=== PATIENT | male | born 1990 | race Caucasian/White ===

== ENCOUNTER → 2016-04-09 | Outpatient (CLI) | payer OTHER, BC ==
[~2016-04-09] MED LIST: CIPR-226 PO; HYDR-3875 PO; PHEN-640 PO; TAMS0.4C98 PO
--- OUTSIDE RECORDS SUMMARY | 2016-04-09 13:12 | XMS REPORT | Continuity of Care Document ---
Author Author [facility] Organization [facility] Address Unknown Phone Unavailable Care Team Providers Care Larry Car Operator Name Role Phone ANIL DARNELL MD PCP Insurance Providers Payer Name Policy Number Subscriber Name Relationship [employer] [id number] Floyd Ballesteros 20 Self / Same As Patient [facility] [id number] Floyd Ballesteros 20 Self / Same As Patient Advance Directives Directive Response Recorded Date/Time Advance Directives No 03/29/16 9:13am Resuscitation Status Full Code 03/29/16 9:13am Problems No problem information available. Medications No known medications. Social History Social History Problem Response Recorded Date/Time Alcohol Use Past History 03/29/2016 9:13am Recreational Drug Use No 03/29/2016 9:13am Recent Foreign Travel No 03/29/2016 9:15am Smoking Status Never a Smoker 03/29/2016 9:13am Recent Hopitalizations No 03/29/2016 9:13am Query Response Start Date Stop Date Smoking Status Never a Smoker Hospital Discharge Instructions Patient Instructions Physician Instructions New, Converted, or Re-newed RX: RX given to Patient/Fam Plan Come to office Sunday 04/09 at 1:30pm, KUB prior to it KUB on way home Increase oral fluids for 48 hours and then as needed. Diet and Activity as tolerated. If questions or concerns contact your physician Or seek help at emergency department. Plan of Care Discharge Date 03/29/16 3:45pm Instructions/Education Provided ANESTHESIA INSTRUCTIONS POSTOP Prescriptions See Medication Section Functional Status No functional status results. Allergies, Adverse Reactions, Alerts No known allergies. Immunizations No immunization records. Vital Signs Acute Vital Signs Vital Response Date/Time Temperature (Fahrenheit) 98.0 degrees F (97.6 - 99.5) 03/29/2016 3:45pm Temperature (Calculated Celsius) 36.86187 degrees C (36.4 - 37.5) 03/29/2016 2:55pm Temperature Source Temporal 03/29/2016 3:45pm Pulse Rate (adult) 77 bpm (60 - 90) 03/29/2016 3:45pm Respiratory Rate 18 bpm (12 - 24) 03/29/2016 3:45pm O2 Sat by Pulse Oximetry 99 % (88 - 100) 03/29/2016 3:45pm Blood Pressure 144/90 mm Hg 03/29/2016 3:45pm Blood Pressure Mean 110 mm Hg 03/29/2016 9:16am Pain Numeric Pain Scale 2 03/29/2016 3:45pm Pain Intensity 3 03/29/2016 2:55pm Height (Feet) 5 feet 03/29/2016 9:15am Height (Inches) 11.00 inches 03/29/2016 9:15am Height (Calculated Centimeters) 180.852557 cm 03/29/2016 9:15am Weight (Pounds) 300 pounds 03/29/2016 9:15am Weight (Ounces) 0.0 oz 03/29/2016 9:15am Weight (Calculated Grams) 688801.71 gm 03/29/2016 9:15am Weight (Calculated Kilograms) 136.612997 kilograms 03/29/2016 9:15am Calculated BMI 41.8 03/29/2016 9:15am Results No known relevant diagnostic tests, laboratory data and/or discharge summary. Procedures Procedure Status Date Provider(s) Cystoscopy Completed 03/29/16 JAYLON OSWALD MD Encounters Encounter Location Arrival/Admit Date Discharge/Depart Date Attending Provider Departed Surgical Day Care [facility] 03/29/16 8:38am 3:45pm JAYLON OSWALD MD Registered Clinic [facility] 03/28/16 9:48am JAYLON OSWALD MD
--- NOTE | 2016-04-09 14:52 | Diagnostic Imaging Report ---
EXAMINATION: KUB. INDICATION: Renal stone. FINDINGS: When compared to 03/29/2016, there is distal migration of both ureteric stents, the right stent is in the mid right ureter and the left stent proximal aspect is in the proximal left ureter. The previously seen stone appears to project at the lower L2 level and could be in the renal pelvis. There is, however, adjacent fecal material, and this density measuring 1.2 cm is possibly but not definitively a stone. No definitive urinary tract stone is identified. Cholecystectomy clips are seen. IMPRESSION: There is migration of ureteric stents distally as described. Suggestion of a 1.2 cm left renal pelvis stone. Dictated by: Dictated on workstation # [id number]
== END ==
LOC: RAD 13:08
PROVIDERS: ATTEND Urology
DX: N20.0 Calculus of kidney (principal)
CPT/HCPCS: 74000

== ENCOUNTER → 2016-04-10 | Day surgery (SDC) | payer OTHER, BC ==
[~2016-04-10] VITALS: Ht 180.3 cm; Wt 136.1 kg
[~2016-04-10] MED LIST changes: +FUROSEMIDE 40 MG/4 ML INJ (LASIX) ONE; +KETOROLAC 30 MG/ML VIAL ONE; +LACTATED RINGERS 1,000 ML IV ONE; +LACTATED RINGERS 1,000 ML IV PRN; +LIDOCAINE 1% 10 MG/ML 0.2 ML SYR (FOR IV START) ONE; +LIDOCAINE PF 2% 10 ML (XYLOCAINE) AMP ONE; +MEPERIDINE (DEMEROL) INJ 50 MG/ML IVP PRN; +MIDAZOLAM 2 MG/2 ML (VERSED) VIAL ONE; +NORMAL SALINE (BAXTER MINI) 50 ML IV ONE; +ONDANSETRON 4 MG/2 ML (SDV) Z0FRAN IVP PRN; +ONDANSETRON 4 MG/2 ML (SDV) Z0FRAN ONE; +SEVOFLURANE (ULTANE) 15 ML INHAL SOLN ONE; +cefTRIAXone 1 GM (ROCEPHIN) VIAL ONE; +cefTRIAXone 1 GM/NS 50 ML IVPB IV ONE; +fentaNYL INJECTION 100 MCG/2 ML AMP ONE; +morphine INJ 10 MG/ML 1ML (SYR OR VIAL) IVP PRN; +proPOfol 200 MG/20 ML (DIPRIVAN) VIAL IV ONE
--- NOTE | 2016-04-10 07:22 | Progress Note-Pre Operative ---
Pre-Operative Progress Note H&P Reviewed The H&P was reviewed, patient examined and no changes noted. Date H&P Reviewed: Apr 10, 2016 Time H&P Reviewed: 07:21 Pre-Operative Diagnosis: Lt renal stone JAYLON OSWALD MD Apr 10, 2016 7:22 am
--- OUTSIDE RECORDS SUMMARY | 2016-04-10 08:11 | XMS REPORT | Continuity of Care Document ---
Author Author [facility] Organization [facility] Address Unknown Phone Unavailable Care Team Providers Care Tanning Solution Maker Name Role Phone ANIL DARNELL MD PCP Insurance Providers Payer Name Policy Number Subscriber Name Relationship [employer] [id number] Floyd Ballesteros 20 Self / Same As Patient [facility] [id number] Floyd Ballesteros 20 Self / Same As [...] - 99.5) 03/29/2016 3:45pm Temperature (Calculated Celsius) 36.03684 degrees C (36.4 - 37.5) 03/29/2016 2:55pm [...] 11.00 inches 03/29/2016 9:15am Height (Calculated Centimeters) 180.579294 cm 03/29/2016 9:15am Weight (Pounds) 300 pounds 03/29/2016 9:15am Weight (Ounces) 0.0 oz 03/29/2016 9:15am Weight (Calculated Grams) 828581.71 gm 03/29/2016 9:15am Weight (Calculated Kilograms) 136.692690 kilograms 03/29/2016 9:15am Calculated BMI 41.8 03/29/2016 9:15am Results No known relevant diagnostic tests, laboratory data and/or discharge summary. Procedures Procedure Status Date Provider(s) Cystoscopy Completed 03/29/16 JAYLON OSWALD MD Encounters Encounter Location Arrival/Admit Date Discharge/Depart Date Attending Provider Departed Surgical Day Care [facility] 03/29/16 8:38am 3:45pm JAYLON OSWALD MD Registered Clinic [facility] 03/28/16 9:48am JAYLON OSWALD MD
--- OUTSIDE RECORDS SUMMARY | 2016-04-10 08:11 | XMS REPORT | Continuity of Care Document ---
Author Author [facility] Organization [facility] Address Unknown Phone Unavailable Care Team Providers Care Optical Dispenser Name Role Phone ANIL DARNELL MD PCP Insurance Providers Payer Name Policy Number Subscriber Name Relationship [employer] [id number] Floyd Ballesteros 20 Self / Same As Patient [facility] [id number] Floyd Ballesteros 20 Self / Same As [...] - 99.5) 03/29/2016 3:45pm Temperature (Calculated Celsius) 36.47453 degrees C (36.4 - 37.5) 03/29/2016 2:55pm [...] 11.00 inches 03/29/2016 9:15am Height (Calculated Centimeters) 180.298022 cm 03/29/2016 9:15am Weight (Pounds) 300 pounds 03/29/2016 9:15am Weight (Ounces) 0.0 oz 03/29/2016 9:15am Weight (Calculated Grams) 312603.71 gm 03/29/2016 9:15am Weight (Calculated Kilograms) 136.282149 kilograms 03/29/2016 9:15am Calculated BMI 41.8 03/29/2016 9:15am Results No known relevant diagnostic tests, laboratory data and/or discharge summary. Procedures Procedure Status Date Provider(s) Cystoscopy Completed 03/29/16 JAYLON OSWALD MD Encounters Encounter Location Arrival/Admit Date Discharge/Depart Date Attending Provider Departed Surgical Day [facility] 03/29/16 8:38am 3:45pm JAYLON OSWALD MD Registered Clinic [facility] 03/28/16 9:48am JAYLON OSWALD MD
[2016-04-10 08:18] VITALS: BP 133/90
--- NOTE | 2016-04-10 09:02 | Diagnostic Imaging Report ---
INDICATION: Undergoing stent removal. TECHNIQUE: Single supine view of the abdomen 8:59 AM. CORRELATION STUDY: 04/09/2016 FINDINGS: Bilateral ureteral stents are again demonstrated. There is again noted low lying positioning of the stents. On the right, the superior portion of the stent is superimposed over the L5 transverse process. Left stent superimposed just above the level of the L3 transverse process. Lower portions of the stents appear to be coiled within the pelvis likely in the urinary bladder. An approximately 1 cm x 0.5 cm calcification superimposed along the anterior inferior margins of the left renal silhouette. IMPRESSION: 1. Bilateral ureteral stents appearing to be low in their positioning particularly on the right. 2. Calcification projected just outside the inferior left renal silhouette. Possible ureteral stone not completely excluded. Dictated by: Dictated on workstation # [id number]
--- NOTE | 2016-04-10 11:21 | Progress Note-Post Operative ---
Post-Operative Progess Note Pre-Operative Diagnosis Lt proximal ureteral/renal stone Post-Operative Diagnosis same Post-Op Procedure Note Date of Procedure: Apr 10, 2016 Name of Procedure: Lt ESWL, cysto and removal of bilateral JJ stents Anesthesia Type general Specimen(s) collected none to JAYLON Nobles MD Apr 10, 2016 11:21 am
--- NOTE | 2016-04-10 11:22 | Discharge Inst-Urology ---
Discharge Inst-Urology Discharge Medications New, Converted, or Re-newed RX: RX on Chart Patient Instructions/Follow Up Plan Please make appointment to been seen in office Saturday 04/22, KUB prior to it KUB on way home Post ESWL instructions Increase oral fluids for 48 hours and then as needed. Diet and Activity as tolerated. If questions or concerns contact your physician Or seek help at emergency department. JAYLON OSWALD MD Apr 10, 2016 11:22 am
[2016-04-10 12:15] VITALS: BP 135/96
[2016-04-10 12:45] VITALS: BP 143/76
[2016-04-10 13:15] VITALS: BP 134/78
--- NOTE | 2016-04-10 13:22 | Diagnostic Imaging Report ---
KUB. INDICATION: Lithotripsy. COMPARISON: Exam from the same day preoperative performed 4 hours earlier is reviewed. FINDINGS: There is interval removal of bilateral ureteric stents. The proximal left ureteric stone is not visualized at this time, no definite stone seen at this time. IMPRESSION: No urinary tract stones identified. Dictated by: Dictated on workstation # [id number]
--- NOTE | 2016-04-10 13:48 | OPERATIVE REPORT ---
PROCEDURE PHYSICIAN: JAYLON OSWALD DATE OF PROCEDURE: 04/10/2016 PREOPERATIVE DIAGNOSIS: Left proximal ureteral or renal stone. POSTOPERATIVE DIAGNOSIS: Left proximal ureteral or renal stone. OPERATION: 1. Left ESWL. 2. Cystoscopy. 3. Removal of bilateral double-J stent. SURGEON: Zohreh. ANESTHESIA: General. COMPLICATIONS: None. PROCEDURE: Under satisfactory general anesthesia, the patient in supine position on the ESWL table the left proximal ureteral-renal stone was localized. Shocks were delivered at KV of 6. A total of 1855 shocks completely fragmented the stone that was not visible anymore even mapping the ureter proximally and distally. The genitalia were prepped and draped in usual sterile fashion. Flexible cystoscope was introduced under vision. The distal end of the first stent was grasped and removed. In a similar fashion the other stent was removed. The bladder was drained with a straight catheter to prevent full bladder postoperatively. The patient tolerated the procedure and anesthesia well and was sent to recovery room in stable condition. Job ID: [id number] Dictated Date: 04/10/2016 11:18:44 Aeronautical Engineering Professor Date: 04/10/2016 13:43:57 / tasha
== END | disposition home or self-care (01) ==
LOC: SDC 08:07
PROVIDERS: ATTEND Urology
DX: N20.1 Calculus of ureter (principal); N20.0 Calculus of kidney; Z11.2 Encounter for screening for other bacterial diseases
CPT/HCPCS: 74000; 87081

== ENCOUNTER → 2016-04-22 | Outpatient (CLI) | payer OTHER, BC ==
[~2016-04-22] MED LIST changes: -FUROSEMIDE 40 MG/4 ML INJ (LASIX) ONE; -KETOROLAC 30 MG/ML VIAL ONE; -LACTATED RINGERS 1,000 ML IV ONE; -LACTATED RINGERS 1,000 ML IV PRN; -LIDOCAINE 1% 10 MG/ML 0.2 ML SYR (FOR IV START) ONE; -LIDOCAINE PF 2% 10 ML (XYLOCAINE) AMP ONE; -MEPERIDINE (DEMEROL) INJ 50 MG/ML IVP PRN; -MIDAZOLAM 2 MG/2 ML (VERSED) VIAL ONE; -NORMAL SALINE (BAXTER MINI) 50 ML IV ONE; -ONDANSETRON 4 MG/2 ML (SDV) Z0FRAN IVP PRN; -ONDANSETRON 4 MG/2 ML (SDV) Z0FRAN ONE; -SEVOFLURANE (ULTANE) 15 ML INHAL SOLN ONE; -cefTRIAXone 1 GM (ROCEPHIN) VIAL ONE; -cefTRIAXone 1 GM/NS 50 ML IVPB IV ONE; -fentaNYL INJECTION 100 MCG/2 ML AMP ONE; -morphine INJ 10 MG/ML 1ML (SYR OR VIAL) IVP PRN; -proPOfol 200 MG/20 ML (DIPRIVAN) VIAL IV ONE
--- OUTSIDE RECORDS SUMMARY | 2016-04-22 13:45 | XMS REPORT | Continuity of Care Document ---
Author Author [facility] Organization [facility] Address Unknown Phone Unavailable Care Team Providers Care Supervisor Paint Roller Covers Name Role Phone ANIL DARNELL MD PCP Insurance Providers Payer Name Policy Number Subscriber Name Relationship [employer] [id number] Floyd Ballesteros 20 Self / Same As Patient [facility] [id number] Floyd Ballesteros 20 Self / Same As [...] - 99.5) 03/29/2016 3:45pm Temperature (Calculated Celsius) 36.91967 degrees C (36.4 - 37.5) 03/29/2016 2:55pm [...] 11.00 inches 03/29/2016 9:15am Height (Calculated Centimeters) 180.697887 cm 03/29/2016 9:15am Weight (Pounds) 300 pounds 03/29/2016 9:15am Weight (Ounces) 0.0 oz 03/29/2016 9:15am Weight (Calculated Grams) 680613.71 gm 03/29/2016 9:15am Weight (Calculated Kilograms) 136.100952 kilograms 03/29/2016 9:15am Calculated BMI 41.8 03/29/2016 9:15am Results No known relevant diagnostic tests, laboratory data and/or discharge summary. Procedures Procedure Status Date Provider(s) Cystoscopy Completed 03/29/16 JAYLON OSWALD MD Encounters Encounter Location Arrival/Admit Date Discharge/Depart Date Attending Provider Departed Surgical Day Care [facility] 03/29/16 8:38am 3:45pm JAYLON OSWALD MD Registered Clinic [facility] 03/28/16 9:48am JAYLON OSWALD MD
--- NOTE | 2016-04-22 14:34 | Diagnostic Imaging Report ---
CLINICAL INDICATION: Followup for renal stones. EXAM: KUB x-ray. COMPARISON: KUB x-ray dated 04/10/2016. FINDINGS: There are no focal calcifications overlying the expected regions/ pathways of both kidneys, ureters, and bladder regions. There is a nonobstructed bowel gas pattern. There is no evidence of abdominal free air. There are surgical clips overlying the right upper abdomen, which may be related to cholecystectomy. The visualized bones and extra abdominal soft tissues are unremarkable. IMPRESSION: There is no radiographic evidence for acute abdominal/ pelvic process or urinary tract stones. Dictated by: Dictated on workstation # [id number]
[2016-04-26 15:49] LABS: KIDNEY STONE COMPOSITION SEE FOOTNOTE; KIDNEY STONE WEIGHT 121 MG
[2016-04-26 15:50] LABS: KIDNEY STONE DESCRIPTION SEE FOOTNOTE
== END ==
LOC: RAD 13:41
PROVIDERS: ATTEND Urology
DX: N20.0 Calculus of kidney (principal)
CPT/HCPCS: 74000; 88300

== ENCOUNTER 2016-05-11 12:08 | Outpatient (RCR) | payer OTHER, BC ==
--- OUTSIDE RECORDS SUMMARY | 2016-04-22 14:54 | XMS REPORT | Continuity of Care Document ---
Author Author [facility] Organization [facility] Address Unknown Phone Unavailable Care Team Providers Care Clinical Sociologist Name Role Phone ANIL DARNELL MD PCP Insurance Providers Payer Name Policy Number Subscriber Name Relationship [employer] [id number] Floyd Ballesteros 20 Self / Same As Patient [facility] [id number] Floyd Ballesteros 20 Self / Same As [...] - 99.5) 03/29/2016 3:45pm Temperature (Calculated Celsius) 36.83588 degrees C (36.4 - 37.5) 03/29/2016 2:55pm [...] 11.00 inches 03/29/2016 9:15am Height (Calculated Centimeters) 180.482432 cm 03/29/2016 9:15am Weight (Pounds) 300 pounds 03/29/2016 9:15am Weight (Ounces) 0.0 oz 03/29/2016 9:15am Weight (Calculated Grams) 475119.71 gm 03/29/2016 9:15am Weight (Calculated Kilograms) 136.610440 kilograms 03/29/2016 9:15am Calculated BMI 41.8 03/29/2016 9:15am Results No known relevant diagnostic tests, laboratory data and/or discharge summary. Procedures Procedure Status Date Provider(s) Cystoscopy Completed 03/29/16 JAYLON OSWALD MD Encounters Encounter Location Arrival/Admit Date Discharge/Depart Date Attending Provider Departed Surgical Day Care [facility] 03/29/16 8:38am 3:45pm JAYLON OSWALD MD Registered Clinic [facility] 03/28/16 9:48am JAYLON OSWALD MD
[2016-04-22 15:02] LABS: KIDNEY STONE COMPOSITION SEE FOOTNOTE
--- OUTSIDE RECORDS SUMMARY | 2016-04-22 15:03 | XMS REPORT | Continuity of Care Document ---
Author Author [facility] Organization [facility] Address Unknown Phone Unavailable Care Team Providers Care Seo Executive Name Role Phone ANIL DARNELL MD PCP Insurance Providers Payer Name Policy Number Subscriber Name Relationship [employer] [id number] Floyd Ballesteros 20 Self / Same As Patient [facility] [id number] Floyd Ballesteros 20 Self / Same As [...] - 99.5) 03/29/2016 3:45pm Temperature (Calculated Celsius) 36.22777 degrees C (36.4 - 37.5) 03/29/2016 2:55pm [...] 11.00 inches 03/29/2016 9:15am Height (Calculated Centimeters) 180.047976 cm 03/29/2016 9:15am Weight (Pounds) 300 pounds 03/29/2016 9:15am Weight (Ounces) 0.0 oz 03/29/2016 9:15am Weight (Calculated Grams) 028146.71 gm 03/29/2016 9:15am Weight (Calculated Kilograms) 136.350569 kilograms 03/29/2016 9:15am Calculated BMI 41.8 03/29/2016 9:15am Results No known relevant diagnostic tests, laboratory data and/or discharge summary. Procedures Procedure Status Date Provider(s) Cystoscopy Completed 03/29/16 JAYLON OSWALD MD Encounters Encounter Location Arrival/Admit Date Discharge/Depart Date Attending Provider Departed Surgical Day [facility] 03/29/16 8:38am 3:45pm JAYLON OSWALD MD Registered Clinic [facility] 03/28/16 9:48am JAYLON OSWALD MD
[2016-05-16 14:38] LABS: STONE RISK AMMONIUM 34 mEq/24hr (14-62); STONE RISK BRUSHITE 5.87 (< 2.00); STONE RISK CA OXALATE 2.52 (< 2.00); STONE RISK CALCIUM 383 mg/day (< 250); STONE RISK CITRATE 563 mg/day (> 320); STONE RISK CREATININE 2306 mg/day (800-2000); STONE RISK MAGNESIUM 211 mg/day (> 60); STONE RISK OXALATE 41 mg/day (< 45); STONE RISK PH 6.5 (5.5-7.0); STONE RISK PHOSPHOROUS 1253 mg/day (< 1100); STONE RISK POTASSIUM 53 mEq/24hr (19-135); STONE RISK SODIUM 311 mEq/24hr (< 200); STONE RISK SODIUM URATES 7.46 (< 2.00); STONE RISK STRUVITE 7.11 (< 75.00); STONE RISK SULFITE 23 mmol/day (< 30); STONE RISK TOTAL VOLUME 1.74 L/day (> 2.00); STONE RISK URIC ACID 959 mg/day (< 700); STONE RISK URIC ACID SAT 0.81 (< 2.00)
== END 2016-07-09 | disposition home or self-care (01) ==
LOC: LAB 12:08
PROVIDERS: ATTEND Urology
DX: N20.9 Urinary calculus, unspecified (principal)
CPT/HCPCS: 36415; 82140; 82340; 82507; 82570; 83735; 83945; 83986; 84105; 84133; 84300; 84392; 84560